=== PATIENT | male | born 1965 | race Caucasian/White ===

== ENCOUNTER 2022-10-30 05:01 | Emergency (ER) | payer OTHER, SELFPAY ==
[2022-10-30 05:02] VITALS: BP 221/121; PULSE 94; RESP 16; TEMP 36.6; O2SAT 95; BMI 33.1
--- NOTE | 2022-10-30 05:19 | EKG12_ITS ---
Test Reason : HTN Blood Pressure : / mmHG Vent. Rate : 088 BPM Atrial Rate : 088 BPM P-R Int : 158 ms QRS Dur : 108 ms QT Int : 388 ms P-R-T Axes : 050 047 006 degrees QTc Int : 469 ms Normal sinus rhythm Normal ECG Confirmed by TATO BONILLA ([id number]), video tape editor NATALIYA JOHNSON ([id number]) on 11/03/2022 8:01:25 AM Referred By: Confirmed By:TATO BONILLA
[2022-10-30 05:48] LABS: Absolute Lymphocyte Count 1.09 X10^3/uL (0.83-4.51); Absolute Neutrophil Count 3.8 X10^3/uL (2.0-7.7); Basophil# 0.05 X10^3/uL; Basophil% 0.9 % (0-1); Eosinophil# 0.12 X10^3/uL; Eosinophils% 2.1 % (0-5); Hematocrit 45.2 % (40-54); Hemoglobin 15.4 g/dL (13.0-16.5); Lymphocyte # 1.09 X10^3/ul (0.83-4.51); Lymphocyte % 19.5 % (19-41); Mean Corp Hgb Conc 34.1 g/dL (32-36); Mean Corpuscular Hgb 30.5 pg (27.0-32.0); Mean Corpuscular Volume 89.5 fL (80-94); Mean Platelet Vol. 9.4 fl (6.2-12.0); Monocyte% 8.9 % (0-10); NRBC Flagged by Analyzer 0 % (0-5); Neutrophil # 3.81 X10^3/uL (2.7-7.7); Neutrophil % 68.2 % (47-70); Platelet Count 290 K/mm3 (150-450); RBC Distribution Width CV 13.2 % (11.6-14.6); RBC Distribution Width SD 43.2 fl (35.1-43.9); Red Blood Count 5.05 M/mm3 (4.6-6.2); White Blood Count 5.6 K/mm3 (4.4-11.0)
[2022-10-30 05:48] LABS: Amphetamine Urine VISTA NEGATIVE (<1000 ng/mL); Barbiturate Urine VISTA NEGATIVE (< 200 ng/mL); Benzodiazepine Urine VISTA NEGATIVE (< 200 ng/mL); Cocaine Urine VISTA NEGATIVE (< 300 ng/mL); Ecstacy Urine VISTA NEGATIVE (< 500 ng/mL); Methadone Urine VISTA NEGATIVE (< 300 ng/mL); PCP Urine VISTA NEGATIVE (< 25 ng/mL); THC Urine VISTA NEGATIVE (< 50 ng/mL); Vista UDS pH Range 6
--- NOTE | 2022-10-30 06:04 | EX.ED.DYSGE1 ---
HPI History of Present Illness Chief Complaint: Mental Health Narrative Narrative: Patient is a 57-year-old male with past medical history of refractory/malignant hypertension and depression. He reports that his home situation is poor and he is constantly under stress from this. He states that the constant ridicule and belittling at home has led to worsening depression and thoughts of suicide. He states he does not have a plan and he denies any recent attempt. He states that roughly 5 years ago he had to be admitted to the [place] secondary to suicidal ideation. He reports he has a psychiatrist and a psychologist but that because of his unrelenting issues at home has had persistent symptoms. He states this evening he was drinking and the transportation maintenance supervisor picked him up on an [employer] and this was another added stressor and with his confession to the police about depression with suicide ideation was brought to the hospital for evaluation [facility] Medical History Depression Hypertension Home Medications Unobtainable 10/30/22 [History Last Taken Unknown] Allergy/AdvReac Type Severity Reaction Status Date / Time No Known Allergies Allergy Verified 10/30/22 05:04 Social History Smoking Status: Current every day smoker tobacco type: cigarettes ROS ROS ED Constitutional Constitutional ED: Denies chills or fever(s) ENT ENT ED: Denies sore throat Cardiovascular Cardiovascular: Denies chest pain Respiratory/Chest Respiratory/Chest: Denies cough or dyspnea Gastrointestinal Gastrointestinal: Denies abdominal pain, diarrhea, nausea or vomiting Genitourinary Genitourinary ED: Denies dysuria Musculoskeletal Musculoskeletal: Denies myalgias Integumentary Denies rash Neurologic Neurologic: Denies headache(s) Psychiatric Psychiatric: Reports depression and suicidal ideation Hematologic/Lymphatic Hematologic/Lymphatic: Denies easy bleeding or easy bruising EXAM Physical Exam Const Vital Signs: 10/30/22 05:02 10/30/22 06:43 Temperature 97.8 F Temperature Source Temporal Pulse Rate 94 81 Respiratory Rate 16 17 Blood Pressure 221/121 H 206/114 H Blood Pressure Mean 154 144 Pulse Ox 95 95 Oxygen Delivery Method Room Air Room Air Positive well nourished and well developed General Appearance ED: well developed Eyes EOMs intact bilaterally Eyes Narrative: Pupils are slightly dilated and sluggish to respond to light with mild scleral injection consistent with history of recent alcohol use Neck supple Resp normal respiratory effort and clear to auscultation bilaterally Cardio regular rate and regular rhythm Rate: other Other Details: Radial pulses are plus 2 out of 4 bilaterally are equal and symmetric GI normal to inspection, nondistended, normoactive bowel sounds, non-tender, non-distended and no masses GI Narrative: No voluntary guarding or rigidity no pulsatile mass or fluid wave Auscultation: normoactive bowel sounds Palpation: soft Extremity Extremity Narrative: Patient has superficial linear lacerations to the bilateral forearms consistent with report of cutting. The abrasions are clean dry and intact without signs of infection or need for closure Neuro oriented x3 and CN's II-XII intact bilaterally Sensorium / Orientation: alert Psych Psych Narrative: Patient has a tearful/depressed affect with suicidal ideation without a plan Skin Skin Narrative: Soft tissue changes to the bilateral forearms as documented above MDM MDM MDM Narrative Medical decision making narrative: Patient presented to the ER hypertensive but states this is chronic for him and it remains elevated even when he takes his blood pressure medication. He reports depression with suicidal ideation but denied any plan. At this time it sounds that his home situation is a major stressor in his life which is not easily corrected. As this is a recurrent stressor and he does have risk factor of previous admission secondary to suicide ideation I do feel it is appropriate that he be evaluated by crisis center/case management. The patient's potassium was slightly down at 3.2 which was replaced orally. He states he is chronically hypertensive despite taking his home medication but based on the persistently elevated value he was given 100 mg oral labetalol. At this time the patient does not have any clinically significant lab abnormalities and he has been medically cleared for emergency room standpoint. Disposition will be per crisis center. Patient is medically cleared for transfer/placement to a psychiatric center if needed History & Record Review Discussion w/independent historian: Patient and Other (security police officer) Lab Data Attestation: I reviewed the patient's lab results. Labs: Laboratory Results - last 24 hr 10/30/22 10/30/22 10/30/22 05:25 05:30 05:30 WBC 5.6 RBC 5.05 Hgb 15.4 Hct 45.2 MCV 89.5 MCH 30.5 MCHC 34.1 RDW Std Deviation 43.2 RDW Coeff of Elizabeth 13.2 Plt Count 290 MPV 9.4 Immature Gran % (Auto) 0.400 Neut % (Auto) 68.2 Lymph % (Auto) 19.5 [place] % (Auto) 8.9 Eos % (Auto) 2.1 Baso % (Auto) 0.9 Absolute Neuts (auto) 3.8 Absolute Lymphs (auto) 1.09 Nucleated RBC % 0 Sodium 138 Potassium 3.2 L Chloride 106 Carbon Dioxide 25.0 Anion Gap 7 BUN 10 Creatinine 0.92 Estim Creat Clear Calc 89.27 Est GFR (MDRD) Af Amer 108 Est GFR (MDRD) Non-Af 89 BUN/Creatinine Ratio 10.8 Glucose 200 H Calcium 8.6 Urine Opiates Screen NEGATIVE Urine Methadone Screen NEGATIVE Ur Barbiturates Screen NEGATIVE Ur Phencyclidine Scrn NEGATIVE Ur Amphetamines Screen NEGATIVE MDMA (Ecstasy) Screen NEGATIVE U Benzodiazepines Scrn NEGATIVE Urine Cocaine Screen NEGATIVE U Cannabinoids Screen NEGATIVE Ur Drug Screen Comment Ethyl Alcohol 10/30/22 05:30 WBC RBC Hgb Hct MCV MCH MCHC RDW Std Deviation RDW Coeff of [place] Plt Count MPV Immature Gran % (Auto) Neut % (Auto) Lymph % (Auto) [place] % (Auto) Eos % (Auto) Baso % (Auto) Absolute Neuts (auto) Absolute Lymphs (auto) Nucleated RBC % Sodium Potassium Chloride Carbon Dioxide Anion Gap BUN Creatinine Estim Creat Clear Calc Est GFR (MDRD) Af Amer Est GFR (MDRD) Non-Af BUN/Creatinine Ratio Glucose Calcium Urine Opiates Screen Urine Methadone Screen Ur Barbiturates Screen Ur Phencyclidine Scrn Ur Amphetamines Screen MDMA (Ecstasy) Screen U Benzodiazepines Scrn Urine Cocaine Screen U Cannabinoids Screen Ur Drug Screen Comment Ethyl Alcohol 45.0 Management Discussion w/another healthcare provider: packing room worker/Case management Discharge Plan Triage Chief Complaint: Mental Health ED Provider: Brendan Croft Dx/Rx/DC Orders Clinical Impression: Depression, Alcohol intoxication, Suicidal ideation Prescriptions: No Action Unobtainable Primary Care Provider: Care Physician,No Primary Referrals: Care Physician,No Primary [Primary Care Provider] - Disposition Disposition: Psychiatric Hospital or Unit
[2022-10-30 06:12] LABS: Anion Gap 7 (5-15); BUN 10 mg/dL (7-18); BUN/Creat Ratio 10.8 RATIO (10-20); Calcium,Total 8.6 mg/dL (8.5-10.1); Chloride 106 mmol/L (98-107); Creatinine, Serum 0.92 mg/dL (0.70-1.30); EST Glomerular Filtration Rate 89 mL/min (>60); Est Glom Filt Rate - Afr Amer 108 mL/min (>60); Estimated Creatinine Clearance 89.27 ml/min; Glucose 200 mg/dL (74-106); Potassium 3.2 mmol/L (3.5-5.1); Sodium Level 138 mmol/L (136-145)
--- NOTE | 2022-10-30 06:35 | ED.RN ---
FAXED PAPERWORK TO CRISIS
[2022-10-30] MEDS: Potassium Chloride Oral Tablet 20 MEQ 40 MEQ PO (06:37)
[2022-10-30 06:43] VITALS: BP 206/114; PULSE 81; RESP 17; O2SAT 95
[2022-10-30] MEDS: Labetalol 100 MG Tablet PO (06:53)
[2022-10-30 07:50] VITALS: BP 184/108; RESP 16
== END 2022-10-30 09:30 ==
PROVIDERS: Emergency Provider Emergency Medicine; Visit Provider Emergency Medicine
DX: F32.A Depression, unspecified (principal); F10.129 Alcohol abuse with intoxication, unspecified; R45.851 Suicidal ideations; Y90.2 Blood alcohol level of 40-59 mg/100 ml; E87.6 Hypokalemia; I10 Essential (primary) hypertension; F17.210 Nicotine dependence, cigarettes, uncomplicated; Z79.899 Other long term (current) drug therapy
CPT/HCPCS: 80048; 80307; 82077; 85025; 87811; 93005; 99285